=== PATIENT | female | born 1945 | race Two or more races ===

== ENCOUNTER 2019-05-11 09:11 | Emergency (ER) | payer OTHER ==
[~2019-05-11] VITALS: Ht 165.1 cm; Wt 69.0 kg
--- NOTE | 2019-05-11 09:25 | NUR ---
PT ROS FROM [facility], C/O DIZZINESS AND LOW BP -KO, PT IS AAXO3, NOT IN RESPIRATORY DISTRESS, HOOKED TO MONITOR, KEPT RESTED AND COMFORTABLE, WILL CONTINUE TO MONITOR.
--- NOTE | 2019-05-11 09:26 | NUR ---
PT SEEN AND EXAMINED BY DR. HESTER.
[2019-05-11] MEDS ORDERED: IV NS 0.9% 1,000 ML BAG IV ONE (09:30)
--- NOTE | 2019-05-11 09:35 | NUR ---
IV LINE ESTABLISHED, BLOOD DRAWNED AND SENT TO LAB.
[2019-05-11 09:36] LABS: BASOPHILS % (AUTO) 0.6 % (0.0-2.0); EOSINOPHILS % (AUTO) 2.7 % (0.0-6.0); HEMATOCRIT 31 % (33-45); HEMOGLOBIN 10.4 g/dL (11.5-14.8); LYMPHOCYTES # (AUTO) 1.1 /CMM (0.8-4.8); LYMPHOCYTES % (AUTO) 16.5 % (20.0-44.0); MEAN CORPUSCULAR HGB CONC 33 g/dl (31.0-36.0); MEAN CORPUSCULAR VOLUME 100 fL (82-100); MONOCYTES # (AUTO) 0.7 /CMM (0.1-1.30); MONOCYTES % (AUTO) 10.2 % (2.0-12.0); NEUTROPHILS # (AUTO) 4.6 /CMM (1.8-8.9); PLATELET COUNT (AUTO) 361 /CMM (150-450); RED BLOOD CELL COUNT(AUTO) 3.12 MIL/uL (4.0-5.2); WHITE BLOOD COUNT (AUTO) 6.6 K/uL (4.3-11.0)
[2019-05-11 09:43] LABS: CALCIUM, SERUM 10.6 mg/dL (8.5-10.1); CARBON DIOXIDE 29 mmol/L (21-32); CHLORIDE 93 mmol/L (98-107); GLUCOSE 98 mg/dL (74-106); POTASSIUM 4.4 mmol/L (3.5-5.1); SODIUM SERUM 134 mmol/L (136-145); UREA NITROGEN, BLOOD 41 mg/dL (7-18)
[2019-05-11 09:44] LABS: CREATININE 10.5 mg/dL (0.6-1.3)
--- NOTE | 2019-05-11 09:50 | NUR ---
[employer] AT BEDSIDE FOR XRAY.
[2019-05-11] MEDS ORDERED: FOLI0.8T2 PO (10:17)
[2019-05-11] MEDS ORDERED: CLOP75TA15 PO (10:17)
[2019-05-11] MEDS ORDERED: VITA1TAB56 PO (10:17)
[2019-05-11] MEDS ORDERED: PANT40TA2 PO (10:17)
[2019-05-11] MEDS ORDERED: METO-295 PO (10:17)
[2019-05-11] MEDS ORDERED: LEVO125T8 PO (10:17)
[2019-05-11] MEDS ORDERED: FLUO-119 PO (10:17)
[2019-05-11] MEDS ORDERED: MEGE40TA PO (10:17)
[2019-05-11] MEDS ORDERED: CINA30TA6 PO (10:17)
[2019-05-11] MEDS ORDERED: ASPI-605 PO (10:17)
[2019-05-11] MEDS ORDERED: SEVE800T8 PO (10:21)
[2019-05-11] MEDS ORDERED: UBIQ75CA PO (10:21)
[2019-05-11] MEDS ORDERED: PRAV40TA3 PO (10:21)
[2019-05-11] MEDS ORDERED: CARB-93 PO (10:21)
[2019-05-11] MEDS ORDERED: FERR325T23 PO (10:21)
[2019-05-11] MEDS ORDERED: DOCU-141 PO (10:21)
[2019-05-11] MEDS ORDERED: MULT1TAB73 PO (10:21)
[2019-05-11] MEDS ORDERED: MAGN400O6 PO (10:48)
[2019-05-11] MEDS ORDERED: ACET-73 PO (10:48)
[2019-05-11] MEDS ORDERED: DIPH25TA25 PO (10:48)
[2019-05-11] MEDS ORDERED: GUAI5SYR4 PO (10:48)
[2019-05-11] MEDS ORDERED: ACETAMINOPHEN ES 500 MG TABLET PO ONE (11:00)
[2019-05-11] MEDS ORDERED: ACETAMINOPHEN ES 500 MG TABLET ONE (11:16)
--- NOTE | 2019-05-11 12:22 | NUR ---
CALLED [facility]. HERBARIUM CURATOR WAS PAGED.
--- NOTE | 2019-05-11 14:17 | NUR ---
PT GOING TO [place] ROOM 515. CALL REPORT TO [phone]
--- NOTE | 2019-05-11 14:50 | NUR ---
REPORT GIVEN TO JUSTINE BYRD OF [facility].
[2019-05-11 15:18] VITALS: BP 104/67
== END 2019-05-11 15:20 | disposition short-term general hospital (02) ==
LOC: ER 09:11
DX: I95.9 Hypotension, unspecified (principal); R11.2 Nausea with vomiting, unspecified; N18.6 End stage renal disease; Z99.2 Dependence on renal dialysis; E78.5 Hyperlipidemia, unspecified; K21.9 Gastro-esophageal reflux disease without esophagitis; F32.9 Major depressive disorder, single episode, unspecified; E03.9 Hypothyroidism, unspecified; Z95.818 Presence of other cardiac implants and grafts; Z79.899 Other long term (current) drug therapy; Z79.82 Long term (current) use of aspirin
CPT/HCPCS: 36415; 71045; 80048; 82962; 84484; 85025; 87081; 93005; 96360; 99285; J7030